=== PATIENT | male | born 1935 | race Caucasian/White ===

== ENCOUNTER 2020-03-01 20:21 | Inpatient (IN) | payer MEDICARE ==
[~2020-03-01] VITALS: Ht 185.4 cm; Wt 72.6 kg
[2020-03-01 08:00] VITALS: BP 125/56
[2020-03-01 20:00] VITALS: BP 119/54
[2020-03-01] MEDS ORDERED: Z GUARD REMEDY PASTE 57 GM TUBE TOP PRN (21:15)
--- NOTE | 2020-03-01 22:00 | NUR ---
PATIENT ADMITTED FROM [facility] AT 1927 VIA [facility]. PATIENT ADMITTED ACUTE REHAB, MD ESTRADA AND DR DE LEON MADE AWARE. AAOx4, NO SIGNS AND SYMPTOMS OF DISTRESS, NO SOB NOTED ON ADMISSION. NO ACUTE DISTRESS NOTED, DENIES ANY PAIN NOR ANY DISCOMFORT. VITAL SIGNS STABLE. URINE OUTPUT GOOD, SUPRAPUBIC CATHETER. BILATERAL LOWER VENOUS ULCERS AND SKIN BRUISING/SCABS ON ARMS NOTED. NEEDS ATTENDED TO, KEPT COMFORTABLE. FALL PRECAUTIONS MAINTAINED, SIDE RIALS UP X2, BED LOCKED AND LOWERED, BED ALARM ON, AND CALL LIGHT WITHIN PATIENT REACH. WILL CONTINUE TO MONITOR PATIENT THROUGH THE NIGHT.
[2020-03-01] MEDS ORDERED: FURO40TA5 IV (22:16)
[2020-03-01] MEDS ORDERED: ZOSYN (22:16)
[2020-03-01] MEDS ORDERED: ENOX40DI SQ (22:16)
[2020-03-01] MEDS ORDERED: SOD62.5V IV (22:16)
[2020-03-01] MEDS ORDERED: MAG-55 PO (22:16)
[2020-03-01] MEDS ORDERED: METO-358 PO (22:16)
[2020-03-01] MEDS ORDERED: MAGN400O6 PO (22:16)
[2020-03-01] MEDS ORDERED: GUAI600T53 PO (22:16)
[2020-03-01] MEDS ORDERED: ACET-2154 PO (22:16)
[2020-03-01] MEDS ORDERED: PIPE3.3749 IV (22:16)
[2020-03-01] MEDS ORDERED: ONDA-104 IVP (22:16)
[2020-03-01] MEDS ORDERED: IPRA12.9 IH (22:16)
[2020-03-01] MEDS ORDERED: HYDR-4384 PO (22:16)
[2020-03-01] MEDS ORDERED: HYDROCODONE/APAP 5-325MG TABLET PO PRN (23:00)
[2020-03-01] MEDS ORDERED: ONDANSETRON HCL 4 MG TABLET PO PRN (23:00)
[2020-03-01] MEDS ORDERED: GUAIFENESIN LA 600 MG TABLET.SA PO PRN (23:00)
[2020-03-01] MEDS ORDERED: IPRATROPIUM BROMIDE 12.9 GM INHALER INH PRN (23:00)
[2020-03-02] MEDS ORDERED: ACETAMINOPHEN 325 MG TABLET PO PRN
[2020-03-02 04:00] VITALS: BP 140/81
[2020-03-02] MEDS ORDERED: PIPERACILLIN SODIUM/TAZO 3.375 GM VIAL IV SCH (06:00)
[2020-03-02 06:26] LABS: BASOPHILS # (AUTO) 0.1 K/uL (0.0-8.0); BASOPHILS % (AUTO) 1.1 % (0.0-2.0); EOSINOPHILS # (AUTO) 0.5 K/uL (0.0-0.7); EOSINOPHILS % (AUTO) 9.4 % (0.0-7.0); HEMOGLOBIN 10.1 g/dL (12.5-16.3); LYMPHOCYTES # (AUTO) 0.9 K/uL (20.0-40.0); LYMPHOCYTES % (AUTO) 18.4 % (20.5-51.5); MEAN CORPUSCULAR HEMOGLOBIN 27.9 uug (23.8-33.4); MEAN CORPUSCULAR HGB CONC 33 g/dL (32.5-36.3); MEAN CORPUSCULAR VOLUME 85.2 fL (73.0-96.2); MONOCYTES # (AUTO) 0.5 K/uL (2.0-10.0); MONOCYTES % (AUTO) 10.9 % (0.0-11.0); NEUTROPHILS # (AUTO) 2.9 K/uL (1.8-8.9); NEUTROPHILS % (AUTO) 60.2 % (38.5-71.5); PLATELET COUNT (AUTO) 203 K/uL (152-348); RED BLOOD CELL COUNT(AUTO) 3.64 MIL/uL (4.06-5.63); WHITE BLOOD COUNT (AUTO) 4.8 K/uL (3.6-10.2)
[2020-03-02 06:54] LABS: THYROID STIMULATING HORMONE 2.379 mIU/mL (0.358-3.740)
--- NOTE | 2020-03-02 06:55 | NUR ---
Patient slept through the night. Patient is Ax0x4, RA saturating 98%. Vitals stable, no sign and symptoms of acute distress, SOB noted. All needs attended to, all items within patient reach. Will continue to monitor. Endorse next shift. Continue plan of care.
[2020-03-02 07:19] LABS: ALANINE AMINOTRANSFERASE 11 U/L (16-63); ALKALINE PHOSPHATASE 94 U/L (50-136); ASPARTATE AMINOTRANSFERASE 20 U/L (15-37); CARBON DIOXIDE 29 mmol/L (21-32); CHLORIDE 100 mmol/L (98-107); CHOLESTEROL 70 mg/dL (<200); CREATININE 0.9 mg/dL (0.6-1.3); GLUCOSE 90 mg/dL (74-106); HDL CHOLESTEROL 26 mg/dL (40-60); MAGNESIUM 2.3 mg/dL (1.8-2.4); PHOSPHOROUS 2.8 mg/dL (2.5-4.9); POTASSIUM 3.7 mmol/L (3.5-5.1); TOTAL PROTEIN, SERUM 7.8 g/dL (6.4-8.2); TRIGLYCERIDES 39 MG/DL (30-150); UREA NITROGEN, BLOOD 13 mg/dL (7-18)
[2020-03-02] MEDS: ENOXAPARIN SODIUM 40 MG/0.4 ML DISP.SYRIN SQ SCH ×2 (09:00→09:26)
[2020-03-02] MEDS: PIPERACILLIN/TAZOBACTAM/D5W 3.375 G in IV DEXTROSE 5% 50 ML IV SCH ×3 (09:06→23:21)
[2020-03-02] MEDS: METOPROLOL SUCCINATE XL 50 MG TAB.SR.24H PO SCH (09:23)
[2020-03-02] MEDS ORDERED: ALBUTEROL SULFATE 1.25 MG/3 ML NEBU NEB PRN (10:30)
[2020-03-02] MEDS ORDERED: IPRATROPIUM BROMIDE 0.5 MG/2.5 ML NEBU NEB PRN (10:30)
--- NOTE | 2020-03-02 11:09 | NUR ---
PATIENT NOTED WITH SLIGHT PINK URINE IN THE DRAINING BAG, PER DR WARD HOLD LOVENOX UNTIL IT RESOLVES, HELD LOVENOX TODAY PER ORDER
[2020-03-02 15:25] VITALS: BP 126/58
--- NOTE | 2020-03-02 18:58 | NUR ---
PATIENT ALERT, ORIENTED X3, NO SOB, RESP EVEN NONLABORED, NO DISTRESS NOTED DURING SHIFT. CONTINUE TO MONITOR, FOR HEMATURIA, PINK COLOR URINE DRAINING, IV INTACT. NO SIGNS AND SYMPTOMS OF INFILTRATION NOTED
--- NOTE | 2020-03-02 19:02 | NUR ---
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
[2020-03-02 20:59] VITALS: BP 144/72
--- NOTE | 2020-03-03 00:18 | NUR ---
awake alert and oriented x4. watching TV upon initial rounds. Needs attended. Patient admitted for Pneumonia. On IV ABT given as scheduled via right arm heplock. No acute distress noted. VSS Patient has a suprapubic catheter draining yellow urine. No hematuria noted. Patient has bilateral lower extremities venous stasis ulcers. Dressing intact. Denies any pain nor any discomfort. Will monitor patient.
--- NOTE | 2020-03-03 06:33 | NUR ---
End of shift note: Quiet night. Slept well most of the shift. VSS. Suprapubic catheter intact [id number] yellow urine. No hematuria noted. No complaints of pain nor any discomfort. Will monitor patient.
--- NOTE | 2020-03-03 07:58 | NUR ---
Received Patient is room, awake and greeted patient. Pt. is AAO x 4. No acute distress. Vital signs stable for patient. No c/o pain at this time. Supra pubic catheter draining well with clear urine, no hematuria noted during assessment. Safety measures in place, call light left within easy reach and will continue with care.
[2020-03-03 08:46] VITALS: BP 129/72
[2020-03-03] MEDS: PIPERACILLIN/TAZOBACTAM/D5W 3.375 G in IV DEXTROSE 5% 50 ML IV SCH ×3 (09:09→23:27)
[2020-03-03] MEDS: METOPROLOL SUCCINATE XL 50 MG TAB.SR.24H PO SCH (09:09)
[2020-03-03] MEDS: SILVER SULFADIAZINE 1% CREAM 50 GM TP SCH (09:10)
--- NOTE | 2020-03-03 11:57 | NUR ---
WOUND CARE CONSULT: PT PRESENTS WITH DRESSINGS TO LOWER EXTREMITIES WHICH ARE DRY AND INTACT, SUPRAPUBIC CATHETER AND DISCOLORATION TO BILATERAL ARMS, PRESENT ON ADMISSION. DEFER TO DPM CURRENTLY O CASE FOR LOWER EXTREMITIES. RECOMMENDATIONS MADE FOR SKIN PROTECTION. DISCUSSED WITH NURSING STAFF. PT IS CONTINENT AT THIS TIME WITH SUPRAPUBIC CATH. WILL SEE PRN. DE LUNA IN AGREEMENT WITH PLAN OF CARE.
--- NOTE | 2020-03-03 13:30 | NUR ---
Patient really cooperative with care, No complains of pain on lower extremities, with dressing in place and as ordered. IV site on Right wrist intact and patent. Patient on IV Zosyn ATB treatment and tolerating well. Patient also on PT/OT therapy; with one person assist for care, skin kept clean and dry, lower back covered with Mapilex for protection, lower extremities elevated. All other needs attended and will continue with care.
[2020-03-03 15:14] VITALS: BP 126/61
--- NOTE | 2020-03-03 18:55 | NUR ---
Patient in bed at this time, IV Zosyn running at this time, IV site intact and patent. All other due mediations administered as ordered and scheduled ant tolerated well. On PT/OT as ordered. Suprapubic catheter intact and draining well. Skin kept clean and dry. All safety measures in place, call light left at bed side, endorsed to next shift and will continue with care.
[2020-03-03 20:21] VITALS: BP 126/65
--- NOTE | 2020-03-03 21:44 | NUR ---
Bedrest maintained. AAOx4 On IV zosyn given at scheduled times. No ill effects noted. VSS. Kept comfortable. Suprapubic catheter intact draining yellow urine. No hematuria noted. Repositioned for comfort. Turned to sides. Will monitor patient. Denies any pain nor any discomfort. Making needs known. Bilateral dressings intact on both legs.
[2020-03-04 05:11] VITALS: BP 129/61
--- NOTE | 2020-03-04 06:39 | NUR ---
End of shift note: Quiet night. AAOx4 suprapubic catheter intact draining yellow urine. I & O monitor. Denies any pain nor any discomfort. VSS. Call lazo within reach. No acute distress, Compliant with care.
[2020-03-04] MEDS: METOPROLOL SUCCINATE XL 50 MG TAB.SR.24H PO SCH (08:48)
[2020-03-04] MEDS: PIPERACILLIN/TAZOBACTAM/D5W 3.375 G in IV DEXTROSE 5% 50 ML IV SCH ×3 (08:48→23:11)
[2020-03-04] MEDS: SILVER SULFADIAZINE 1% CREAM 50 GM TP SCH (10:02)
--- NOTE | 2020-03-04 10:35 | NUR ---
Patient complaint of difficulty breathing. MD Robles notified. Breathing treatment PRN given. Patient complaint of chest pain after a while. MD aware. ordered Troponin and EKG stat. Result relayed to MD. no new order this time. ordered might have cardio consult. will continue monitor
[2020-03-04 11:33] VITALS: BP 123/54
[2020-03-04] MEDS: MAGNESIUM HYDROXIDE 30 ML LIQUID UDC PO PRN (13:39)
[2020-03-04] MEDS: ASPIRIN 81 MG TAB.CHEW PO SCH (14:48)
[2020-03-04] MEDS: FUROSEMIDE 40 MG/4 ML VIAL IV SCH (14:48)
--- NOTE | 2020-03-04 15:00 | NUR ---
Patient seen and examined by MD Bojorquez filling and packing supervisor for congestion/chest pain with order aspirin 81mg now then daily and furosemide 4ml injection via IV site for Pleural Effusion. Patient for echocardiogram. not in distress. will continue monitor
[2020-03-04 16:00] VITALS: BP 110/54
--- NOTE | 2020-03-04 16:12 | NUR ---
INDIVIDUALIZED PLAN OF CARE
--- NOTE | 2020-03-04 18:14 | NUR ---
Patient yellow urine noted in bae catheter bag. no hematuria noted. MD Robles aware. ordered resume lovenox 40mg QAM. Chest xray relayed to MD Robles. no new order. Echocardiogram done. awaiting for result. will continue monitor
[2020-03-04] MEDS ORDERED: ENOXAPARIN SODIUM 40 MG/0.4 ML DISP.SYRIN SQ SCH (18:45)
[2020-03-04] MEDS: ENOXAPARIN SODIUM 40 MG/0.4 ML DISP.SYRIN SQ SCH (20:50)
[2020-03-04 21:06] VITALS: BP 110/53
--- NOTE | 2020-03-04 21:09 | NUR ---
awake alert and oriented x4. HOB up at all times. patient complained of mid sternal chest pain on pain scale of 6/10 and SOB. Vital signs taken and recorded. HR 108 BP 110/53 97% RA. Patient still feels SOB. O2@ 2L via nasal cannula. Incentive spirometry given, instructed patient how to use it, patient compliant. Paged respiratory for breathing treatments manufacturing electrician aware. Will monitor patient.
[2020-03-05 04:38] VITALS: BP 108/46
[2020-03-05 06:22] LABS: CREATININE 0.9 mg/dL (0.6-1.3); POTASSIUM 4.1 mmol/L (3.5-5.1)
--- NOTE | 2020-03-05 06:25 | NUR ---
End of shift note: Slept well throughout the night. Suprapubic catheter draining yellow urine. Denies any chest pain nor any discomfort. VSS. O2@2L via nasal cannula, pulse ox 97%
[2020-03-05 08:00] VITALS: BP 113/57
[2020-03-05] MEDS: PIPERACILLIN/TAZOBACTAM/D5W 3.375 G in IV DEXTROSE 5% 50 ML IV SCH ×2 (08:37→17:13)
[2020-03-05] MEDS: METOPROLOL SUCCINATE XL 50 MG TAB.SR.24H PO SCH (08:38)
[2020-03-05] MEDS: FUROSEMIDE 40 MG/4 ML VIAL IV SCH (08:47)
[2020-03-05] MEDS: ASPIRIN 81 MG TAB.CHEW PO SCH (08:48)
[2020-03-05] MEDS: SILVER SULFADIAZINE 1% CREAM 50 GM TP SCH (08:49)
--- NOTE | 2020-03-05 11:49 | NUR ---
PATIENT NOTED WITH AMPUTATED TWO TOES OF RIGHT FOOT, DRESSING CHANGED TO CHRONIC VENOUS ULCERS, RIGHT LEG VENOUS ULCERS ARE OPEN, NO DRAINAGE NOTED, WOUND BED IS RED, PERIWOUND IS DISCOLORED, LEFT LEG WOUNDS ARE RED WOUND BED, DISCOLORED PERIWOUND, NO DRAINAGE NOTED, RIGHT UNDERFOOT IS DRY SCABED MIXER OF CALLUS, AND VENOUS DRY WOUNDS.
--- NOTE | 2020-03-05 11:53 | NUR ---
SPOKE TO ABOUT 20 MINUTE UPDATED ON PATIENT CURRENT CONDITION. ANSWERED QUESTIONS AND ADDRESSED CONCERNED
--- NOTE | 2020-03-05 14:50 | NUR ---
INTERDISCIPLINARY TEAM CONFERENCE
[2020-03-05 16:08] VITALS: BP 135/48
--- NOTE | 2020-03-05 18:57 | NUR ---
patient is alert, oriented x3, verbally responsive, no sob,resp even nonlabored, participated in rehab, tolerated shower well, denied any chest pain during shift,patient stated he feels fine, comfortable,and no pain.no distress noted ,
[2020-03-05] MEDS: ENOXAPARIN SODIUM 40 MG/0.4 ML DISP.SYRIN SQ SCH (20:51)
[2020-03-05 20:55] VITALS: BP 116/61
--- NOTE | 2020-03-05 22:00 | NUR ---
PATIENT'S CALLED; UPDATE GIVEN. PATIENT'S KERMIT VERBALIZED BEING WORRIED FOR PATIENT. EXPLAINED PLAN OF CARE. KERMIT AGREED AND GRATEFUL FOR CARE. PATIENT IS IN BED, ON ROOM AIR, TOLERATED WELL. RESPIRATIONS EVEN AND UNLABORED. NO EPISODES OF COUGHING. PATIENT DENIES PAIN. PATIENT IS ONGOING IV ATB THERAPY. TOLERATED WELL WITH NO ASE NOTED D/T ATB USE. SUPRAPUBIC CATHETER INTACT, DRAINING CLEAR YELLOW URINE. WILL CONTINUE TO ANTICIPATE AND ATTEND TO PATIENT'S NEEDS AND OBSERVE FALL AND SAFETY PRECAUTIONS.
[2020-03-06] MEDS: PIPERACILLIN/TAZOBACTAM/D5W 3.375 G in IV DEXTROSE 5% 50 ML IV SCH ×4 (00:05→23:44)
--- NOTE | 2020-03-06 05:00 | NUR ---
PATIENT IS ASLEEP. BUT EASILY AROUSABLE. NO FACIAL GRIMACING OR COMPLAINTS OF PAIN THROUGH THE NIGHT. PATIENT SLEPT WELL DURING THE NIGHT. ALL NEEDS ATTENDED. FALL AND SAFETY PRECAUTIONS OBSERVED. PATIENT KEPT WARM, DRY, AND COMFORTABLE. PATIENT TOLERATED MEDICATIONS RECEIVED.
[2020-03-06 05:08] VITALS: BP 124/69
[2020-03-06] MEDS: MAGNESIUM HYDROXIDE 30 ML LIQUID UDC PO PRN (06:13)
[2020-03-06 07:56] VITALS: BP 131/70
[2020-03-06] MEDS: FUROSEMIDE 40 MG/4 ML VIAL IV SCH (08:07)
[2020-03-06] MEDS: METOPROLOL SUCCINATE XL 50 MG TAB.SR.24H PO SCH (08:08)
[2020-03-06] MEDS: ASPIRIN 81 MG TAB.CHEW PO SCH (08:08)
[2020-03-06] MEDS: SILVER SULFADIAZINE 1% CREAM 50 GM TP SCH (08:08)
--- NOTE | 2020-03-06 10:08 | NUR ---
Patient noted resting in bed, took all am medications, no complaints of pain, no signs of distress noted, call light in reach, bed locked and in lowest position, all needs met
[2020-03-06 15:59] VITALS: BP 129/63
--- NOTE | 2020-03-06 19:42 | NUR ---
Received patient in bed. AAO x4. No acute distress or SOB was noted. No complain of pain at this time. On room air. Physical assessment done. safety measures maintain, fall prevention observed. Skin assessed. IV [place] on the right hand, patent, no sign of inflammation. Abdominal binder covered surgical site. Bed in locked and low position, side rails up x2 for safety, bed alarm on. Call light and frequently using items within reach. Continue to monitor. Addendum: 03/07/20 at 0147 by RAFAELA FERNANDEZ RN please discard the note.
--- NOTE | 2020-03-06 19:47 | NUR ---
Received patient in bed. AAO x4. No acute distress or SOB was noted. No complain of pain at this time. On room air. Physical assessment done. safety measures maintain, fall prevention observed. Skin assessed. IV [place] on the right hand, patent, no sign of inflammation. Bed in locked and low position, side rails up x2 for safety, bed alarm on. Call light and frequently using items within reach. Continue to monitor.
[2020-03-06] MEDS: ENOXAPARIN SODIUM 40 MG/0.4 ML DISP.SYRIN SQ SCH (20:26)
[2020-03-06 20:28] VITALS: BP 126/62
[2020-03-07 05:11] VITALS: BP 111/62
[2020-03-07 05:49] LABS: BASOPHILS % (AUTO) 0.8 % (0.0-2.0); EOSINOPHILS # (AUTO) 0.3 K/uL (0.0-0.7); EOSINOPHILS % (AUTO) 4.8 % (0.0-7.0); HEMATOCRIT 30.5 % (36.7-47.1); LYMPHOCYTES # (AUTO) 0.8 K/uL (20.0-40.0); LYMPHOCYTES % (AUTO) 14.6 % (20.5-51.5); MEAN CORPUSCULAR HEMOGLOBIN 28.3 uug (23.8-33.4); MEAN CORPUSCULAR HGB CONC 33 g/dL (32.5-36.3); MEAN CORPUSCULAR VOLUME 86.3 fL (73.0-96.2); MONOCYTES # (AUTO) 0.8 K/uL (2.0-10.0); MONOCYTES % (AUTO) 13.9 % (0.0-11.0); NEUTROPHILS # (AUTO) 3.8 K/uL (1.8-8.9); NEUTROPHILS % (AUTO) 65.9 % (38.5-71.5); PLATELET COUNT (AUTO) 167 K/uL (152-348); RED BLOOD CELL COUNT(AUTO) 3.53 MIL/uL (4.06-5.63); WHITE BLOOD COUNT (AUTO) 5.7 K/uL (3.6-10.2)
[2020-03-07 05:56] LABS: CREATININE 0.9 mg/dL (0.6-1.3); MAGNESIUM 2.2 mg/dL (1.8-2.4); PHOSPHOROUS 2.6 mg/dL (2.5-4.9); POTASSIUM 3.6 mmol/L (3.5-5.1)
--- NOTE | 2020-03-07 06:18 | NUR ---
End of the shift note: Patient was stable during the shift and had a good sleep last night. No acute distress or SOB was noted. No complain of pain. On room air. All medications including IV antibiotic administered and well tolerated. Physical assessment done. safety measures maintain, fall prevention observed. Skin assessed. Both LE venous ulcers dressing changed. IV [place] on the right hand, patent, no sign of inflammation. Suprapubic catheter in place, draining yellow urine. All needs attended promptly. Bed in locked and low position, side rails up x2 for safety, bed alarm on. Call light and frequently using items within reach. Continue to monitor and will mendorse to the day shift nurse accordingly.
--- NOTE | 2020-03-07 07:38 | NUR ---
Patient noted resting in bed with eyes closed, no complaints of pain, no signs of distress noted, call light in reach, bed locked and in lowest position, all needs met at this time
[2020-03-07 08:00] VITALS: BP 131/75
[2020-03-07] MEDS: FUROSEMIDE 40 MG/4 ML VIAL IV SCH (08:13)
[2020-03-07] MEDS: PIPERACILLIN/TAZOBACTAM/D5W 3.375 G in IV DEXTROSE 5% 50 ML IV SCH ×3 (08:13→23:33)
[2020-03-07] MEDS: ASPIRIN 81 MG TAB.CHEW PO SCH (08:15)
[2020-03-07] MEDS: METOPROLOL SUCCINATE XL 50 MG TAB.SR.24H PO SCH (08:34)
[2020-03-07] MEDS: SILVER SULFADIAZINE 1% CREAM 50 GM TP SCH (08:35)
[2020-03-07 15:43] VITALS: BP 116/63
--- NOTE | 2020-03-07 19:42 | NUR ---
Received patient in bed. AAO x4. No acute distress or SOB was noted. No complain of pain at this time. On room air. Physical assessment done. safety measures maintain, fall prevention observed. Skin assessed. IV [place] on the right hand, patent, no sign of inflammation. Suprapubic catheter in place draining yellow urine. Bed in locked and low position, side rails up x2 for safety, bed alarm on. Call light and frequently using items within reach. Continue to monitor.
[2020-03-07] MEDS: ENOXAPARIN SODIUM 40 MG/0.4 ML DISP.SYRIN SQ SCH (20:06)
[2020-03-07 20:24] VITALS: BP 121/70
[2020-03-08 04:23] VITALS: BP 126/62
--- NOTE | 2020-03-08 05:29 | NUR ---
End of the shift note: Patient was stable during the shift and had a good sleep last night. No acute distress or SOB was noted. No complain of pain. On room air. All medications including IV antibiotic administered and well tolerated. Physical assessment done. safety measures maintain, fall prevention observed. Skin assessed. Both LE venous ulcers dressing changed. IV [place] on the right hand, patent, no sign of inflammation. Suprapubic catheter in place, draining yellow urine. All needs attended promptly. Bed in locked and low position, side rails up x2 for safety, bed alarm on. Call light and frequently using items within reach. Continue to monitor and will endorse to the day shift nurse accordingly.
[2020-03-08] MEDS: PIPERACILLIN/TAZOBACTAM/D5W 3.375 G in IV DEXTROSE 5% 50 ML IV SCH ×3 (07:56→23:06)
[2020-03-08] MEDS: ASPIRIN 81 MG TAB.CHEW PO SCH (07:57)
[2020-03-08] MEDS: SILVER SULFADIAZINE 1% CREAM 50 GM TP SCH (07:57)
[2020-03-08] MEDS: FUROSEMIDE 40 MG/4 ML VIAL IV SCH (07:58)
[2020-03-08] MEDS: METOPROLOL SUCCINATE XL 50 MG TAB.SR.24H PO SCH (07:58)
[2020-03-08 08:00] VITALS: BP 121/71
--- NOTE | 2020-03-08 13:51 | NUR ---
Patient noted having a right sided nostril nose bleed, rhino rocket in place per MD Robles orders
[2020-03-08 16:36] VITALS: BP 119/65
--- NOTE | 2020-03-08 19:30 | NUR ---
RECEIVED PT AWAKE, ALERT AND ORIENTEDX3. PT IN NO ACUTE RESPIRATORY DISTRESS. SUPRAPUBIC CATHETER DWELLING WELL AND INTACT. IV INTACT AND PATENT. SAFETY AND COMFORT PROVIDED. WILL CONTINUE TO MONITOR.
[2020-03-08 20:12] VITALS: BP 121/56
[2020-03-08] MEDS: ENOXAPARIN SODIUM 40 MG/0.4 ML DISP.SYRIN SQ SCH (20:34)
[2020-03-09 04:12] VITALS: BP 131/63
--- NOTE | 2020-03-09 06:19 | NUR ---
PT SLEPT INTERMITTENTLY. PT IN NO ACUTE RESPIRATORY DISTRESS. IV INTACT. SUPRAPUBIC CATHETER INTACT AND DRAINING WELL. PRESCRIBED MEDICATION GIVEN AND PT TOLERATED IT WELL. PT GIVEN MUCINEX PRN LAST NIGHT FOR COUGH PRESCRIBED . PT TURNED AND REPOSITIONED Q2H. SAFETY AND COMFORT PROVIDED. ALL NEEDS ARE MET. WILL ENDORSE TO INCOMING NURSE FOR CONTINUITY OF CARE.
[2020-03-09 08:00] VITALS: BP 134/75
--- NOTE | 2020-03-09 08:00 | NUR ---
Discussed plan of care with pt re: participating with physical therapy and encourage independence. Pt agreeable with plan of care. Rhino Rocket on right nostril in placed. No bleeding noted. PT states he is comfortable and denies any c/o pain.
[2020-03-09] MEDS: PIPERACILLIN/TAZOBACTAM/D5W 3.375 G in IV DEXTROSE 5% 50 ML IV SCH ×2 (08:14→17:19)
[2020-03-09] MEDS: METOPROLOL SUCCINATE XL 50 MG TAB.SR.24H PO SCH (08:15)
[2020-03-09] MEDS: FUROSEMIDE 20 MG TABLET PO SCH (08:15)
[2020-03-09] MEDS: SILVER SULFADIAZINE 1% CREAM 50 GM TP SCH (08:17)
[2020-03-09 16:00] VITALS: BP 122/65
--- NOTE | 2020-03-09 18:17 | NUR ---
Pt is for d/c in am per benito. Pt still need to be seen by dr sexton. Pt has question if rhino rocket is ok to be removed. Explained to pt that DR sexton will assess him and decide what to do with the nasal plug. Pt agreeable with plan of care. Call light is within reach.
[2020-03-09 20:14] VITALS: BP 121/59
--- NOTE | 2020-03-10 00:21 | NUR ---
aaox3-4 resting in bed. Needs attended. On IV Zosyn infusing well via right arm heplock. Rhino [place] to the right nostril in placed, no nose bleeding noted. Kept comfortable. VSS. Will monitor patient. Suprapubic catheter intact draining yellow urine. I & O monitor. Needs attended. Bilateral dressings to both legs done as ordered. Patient compliant with care and meds. Will monitor patient. Possible d/c in am.
[2020-03-10 04:20] VITALS: BP_SYST 120
[2020-03-10 06:15] LABS: BASOPHILS # (AUTO) 0.1 K/uL (0.0-8.0); BASOPHILS % (AUTO) 0.9 % (0.0-2.0); EOSINOPHILS # (AUTO) 0.5 K/uL (0.0-0.7); EOSINOPHILS % (AUTO) 7.8 % (0.0-7.0); HEMATOCRIT 30.6 % (36.7-47.1); HEMOGLOBIN 10.2 g/dL (12.5-16.3); LYMPHOCYTES # (AUTO) 0.9 K/uL (20.0-40.0); LYMPHOCYTES % (AUTO) 12.9 % (20.5-51.5); MEAN CORPUSCULAR HEMOGLOBIN 28.2 uug (23.8-33.4); MEAN CORPUSCULAR HGB CONC 33 g/dL (32.5-36.3); MEAN CORPUSCULAR VOLUME 84.6 fL (73.0-96.2); MONOCYTES # (AUTO) 0.8 K/uL (2.0-10.0); MONOCYTES % (AUTO) 12.2 % (0.0-11.0); NEUTROPHILS # (AUTO) 4.5 K/uL (1.8-8.9); NEUTROPHILS % (AUTO) 66.2 % (38.5-71.5); PLATELET COUNT (AUTO) 194 K/uL (152-348); RED BLOOD CELL COUNT(AUTO) 3.61 MIL/uL (4.06-5.63); WHITE BLOOD COUNT (AUTO) 6.8 K/uL (3.6-10.2)
[2020-03-10 06:29] LABS: CREATININE 0.8 mg/dL (0.6-1.3); MAGNESIUM 2.4 mg/dL (1.8-2.4); PHOSPHOROUS 3.1 mg/dL (2.5-4.9); POTASSIUM 3.9 mmol/L (3.5-5.1)
[2020-03-10] MEDS: ENSURE CLEAR 240 ML LIQUID (MIX BERRY) PO SCH ×2 (08:00→17:15)
[2020-03-10 08:56] VITALS: BP 131/69
[2020-03-10] MEDS: FUROSEMIDE 20 MG TABLET PO SCH (08:58)
[2020-03-10] MEDS: METOPROLOL SUCCINATE XL 50 MG TAB.SR.24H PO SCH (08:59)
[2020-03-10] MEDS ORDERED: FERROUS GLUCONATE 324 MG TABLET PO SCH (09:00)
[2020-03-10] MEDS: SILVER SULFADIAZINE 1% CREAM 50 GM TP SCH (13:36)
[2020-03-10 15:25] VITALS: BP 124/60
--- NOTE | 2020-03-10 17:37 | NUR ---
Pt received, assessed, no SOB or acute distress noted. Pt requested pain medication prior to working with therapy. PRN pain medication administered with routine medications. Pt compliant and cooperative with care. Pt seen by MD. Discharge orders received. Discharge paperwork completed, discussed, and signed. Rx faxed to preferred pharmacy. Skin integrity and wound photos taken in chart. No home medications to return. Belongings accounted for and lisst signed. Discharge plan of care discussed with Pt, daughter Mariela, and Kady. This includes home health to be provided, and following up with ENT specialist re Rhino rocket packing. All discharge concerns addressed. IV removed, intact. Suprapubic [place] catheter intact, patent, and drained. Pt safely transferred to [facility] and escorted out of hospital with trust clerk to ambulance.
== END 2020-03-10 17:25 | disposition home health service (06) | DRG 264 ==
PROVIDERS: ADMIT Physical Medicine & Rehabilitation Pain Medicine; ATTEND Physical Medicine & Rehabilitation Pain Medicine
PROC: 0JBP0ZZ Excision of Left Lower Leg Subcutaneous Tissue and Fascia, Open Approach (ICD-10-PCS; principal; 2020-03-02)
PROC: 0JBN0ZZ Excision of Right Lower Leg Subcutaneous Tissue and Fascia, Open Approach (ICD-10-PCS; 2020-03-02)
PROC: 2Y41X5Z Packing of Nasal Region using Packing Material (ICD-10-PCS; 2020-03-08)
DX: I11.0 Hypertensive heart disease with heart failure (principal); J15.6 Pneumonia due to other Gram-negative bacteria; J96.01 Acute respiratory failure with hypoxia; I31.3 Pericardial effusion (noninflammatory); I48.20 Chronic atrial fibrillation, unspecified; L97.829 Non-pressure chronic ulcer of other part of left lower leg with unspecified severity; L97.819 Non-pressure chronic ulcer of other part of right lower leg with unspecified severity; L03.116 Cellulitis of left lower limb; L03.115 Cellulitis of right lower limb; N39.0 Urinary tract infection, site not specified; E44.0 Moderate protein-calorie malnutrition; E87.1 Hypo-osmolality and hyponatremia; N31.9 Neuromuscular dysfunction of bladder, unspecified; D64.9 Anemia, unspecified; I50.43 Acute on chronic combined systolic (congestive) and diastolic (congestive) heart failure; I08.0 Rheumatic disorders of both mitral and aortic valves; F41.9 Anxiety disorder, unspecified; I27.20 Pulmonary hypertension, unspecified; I45.10 Unspecified right bundle-branch block; N40.0 Benign prostatic hyperplasia without lower urinary tract symptoms; I83.009 Varicose veins of unspecified lower extremity with ulcer of unspecified site; R04.0 Epistaxis; Z88.8 Allergy status to other drugs, medicaments and biological substances; Z91.013 Allergy to seafood; R53.1 Weakness
CPT/HCPCS: 36415; 70030-TC; 71045; 83550; 83735; 84100; 84443; 85025; 85610; 93005; 93307; 94640; A4217; J1650; J1940; J2543; J3590; J7040; J7060

== ENCOUNTER 2022-07-21 08:13 | Outpatient (CLI) | payer MEDICARE, BC ==
[~2022-07-21 08:13] MED LIST: ACET-2154 PO; ENOX40DI SQ; FURO40TA5 IV; GUAI600T53 PO; HYDR-4384 PO; IPRA12.9 IH; MAG-55 PO; MAGN400O6 PO; METO-358 PO; ONDA-104 IVP; PIPE3.3749 IV; SOD62.5V IV
== END 2022-07-21 10:54 | disposition home or self-care (01) ==
LOC: LAB 08:13
PROVIDERS: ATTEND Orthopaedic Surgery Sports Medicine
DX: Z75.3 Unavailability and inaccessibility of health-care facilities (principal)